=== PATIENT | male | born 1985 | race American Indian/Alaskan Native ===

== ENCOUNTER 2018-01-21 10:10 | Outpatient (CLI) | payer BC ==
--- NOTE | 2018-01-22 01:54 | Treadmill Report ---
The patient exercised for 9 minutes and 30 seconds of a Blas protocol, reaching stage 4 and achieving 10.5 mets. Peak heart rate was 188 beats per minute. Peak blood pressure was 160/80. There was no chest pain. Test was stopped for fatigue. Baseline ECG was sinus rhythm. With exercise, there were no ST changes of ischemia. No significant dysrhythmias were noted. CONCLUSION: 1. Good exercise capacity. 2. No chest pain. 3. No ST changes of ischemia. 4. No significant dysrhythmias. This is a normal exercise ECG test. JOB# [id number] CA/NTS
== END 2018-01-21 10:11 | disposition home or self-care (01) ==
LOC: CARD 10:10 → ECHO 10:10 → CARD 10:11
PROVIDERS: ATTEND Internal Medicine Cardiovascular Disease
DX: I45.6 Pre-excitation syndrome (principal)
CPT/HCPCS: 93017